=== PATIENT | female | born 1995 | race Caucasian/White ===

== ENCOUNTER 2024-12-03 08:34 | Outpatient (REF) | payer OTHER, SELFPAY ==
--- NOTE | 2024-12-03 08:40 | ECG_ITS ---
Test Reason : R/O QT PROLONGATION Blood Pressure : */* mmHG Vent. Rate : 67 BPM Atrial Rate : 67 BPM P-R Int : 162 ms QRS Dur : 82 ms QT Int : 402 ms P-R-T Axes : 76 35 47 degrees QTcB Int : 424 ms Normal sinus rhythm Normal ECG No previous ECGs available Referred By: Mague Encinas Electronically Signed By: ABDIRAHMAN COLEMAN
--- OUTSIDE RECORDS SUMMARY | 2024-12-03 08:44 | XMS_ITS | Clinical Summary ---
Author Organization [facility] Address [address] [place] [phone] Phone Care Team Providers Care [employer] Estate Services Coordinator Name Role Phone Leia Kumar MD Primary Care Provider [phone] Allergies No known active allergies Medications betamethasone dipropionate 0.05 % lotion Apply 5 to 10 drops twice a day to scalp if itchy Active DICLOFENAC SODIUM TOP Diclofenac Sodium 1 % Gel-APPLY 2 G TOPICALLY 4 TIMES DAILY. SHOULDER PAIN - Apply externally Active dicyclomine (BENTYL) 10 mg capsule Take 1 Capsule by mouth 3 times daily as needed (abd pain, diarrhea) for up to 180 days. - Oral Active omeprazole (PriLOSEC) [address] capsule TAKE 1 CAPSULE BY MOUTH EVERY DAY 90 capsule 3 07/20/20 24 Active Additional Information Patient not taking.Reported on 11/13/2024 cholecalciferol (Vitamin D3) 50 mcg (2,000 unit) tablet TAKE 1 TABLET BY MOUTH EVERY DAY 90 tablet 2 08/20/20 24 Active Additional Information Patient not taking.Reported on 11/13/2024 ondansetron (ZOFRAN) 4 mg tablet TAKE 1 TABLET BY MOUTH EVERY 8 HOURS NEEDED FOR NAUSEA 90 tablet 2 10/16/19 25 Active albuterol HFA (Ventolin HFA) 90 mcg/actuation inhaler Inhale 2 puffs by mouth every 4 (four) hours if needed for wheezing or shortness of breath. 8 g 10/16/19 25 Active FLUoxetine (PROzac) 20 mg tablet Take 1 tablet (20 mg total) by mouth 1 (one) time each day. 11/06/19 25 Active cyclobenzaprine (FLEXERIL) 5 mg tablet Take 1 tablet (5 mg total) by mouth 3 (three) times a day if needed for muscle spasms. 90 tablet 11/14/19 25 025 Active sertraline (ZOLOFT) 50 mg tablet TAKE 1 TABLET BY MOUTH EVERY DAY 90 tablet 1 10/02/19 25 025 Discontin ued(Alter miki therapy) Active Problems Problem Noted Date Diagnosed Date Eczema 06/16/2024 Gardnerella infection 06/16/2024 Recurrent UTI 06/16/2024 Anxiety 06/16/2024 Depression 06/16/2024 Vitamin D deficiency 06/16/2024 GERD (gastroesophageal reflux disease) Flank pain 06/16/2024 Irritable bowel syndrome wit h both constipation and diarrhea 06/16/2024 Encounters Date Type Department Care Team Description 11/13/2024 1:00 PM EDT Office Visit Adult Medicine [address] [phone] Leia Kumar MD Moderate episode of recurrent major depressive disorder (CMS/HCC) (Primary Dx); Anxiety; Strain of trapezius muscle, unspecified laterality, subsequent encounter; Urinary frequency 10/16/2024 1:45 PM EST Office Visit Walk-In [address] [phone] John Batres NP Symptoms of upper respiratory infection (URI) (Primary Dx); COVID; Influenza A 10/16/2024 Telephone Walk-In [address] [phone] John Batres NP 10/16/2024 Telephone Walk-In [address] [phone] John Batres NP 10/15/2024 Telephone Adult Medicine [address] [phone] Leia Kumar MD Forms/questionnaires ([facility]) 09/30/2024 2:10 PM EST - 09/30/2024 11:59 PM EST Hospital Encounter XRAY - [place] [id number] [place], [place] [phone] Neck tightness Discharge Disposition: Home or Self Care 09/30/2024 1:36 PM EST - 09/30/2024 11:59 PM EST Hospital Encounter Radiology Department - [address] [phone] Dizziness Discharge Disposition: Home or Self Care 09/18/2024 Nurse Triage Adult Medicine [facility] - [address] [phone] Leia Kumar MD from Last 3 Months Immunizations Name Administration Dates Next Due DTP 01/01/1996, 3,1993,1992 DTaP (Infanrix) 6wks to less than 7yo 06/28/1998 [id number] (Pentacel) 2mo to less than 5yo 01/01/1996,1993,1993,1992 HPV, Quadrivalent 04/22/2009,04/26/2008,10/21/19 08 Hepatitis B Pediatric (Enger ix B; Recombivax HB) to less than 20 yo 1993,1993,1993 MMR, measles mumps and rubel la Live (Priorix; M-M-R II) 12mo and older 06/28/1998,01/01/1996 OPV 06/28/1998, 6,1993,1992 Td Tetanus diptheria (Tdvax) 7yo and older 08/12/2004 Tdap Tetanus diptheria acell ular pertussis (Boostrix; Adacel) 7yo and older 11/19/2014 Surgical History Surgery Date Site/Laterality Comments OTHER SURGICAL HISTORY 2009 PROCEDURE: [place] I&D OF BARTHOLINS GLAND ABSCESS; COMMENT: Bartholin Cyst drainage and revision at age 17 yrs Medical History Medical History Date Comments History of chlamydia 06/09/2020 DX:History of chlamydia; COMMENT: 2012, 2010, & 2009 Gardnerella infection 06/09/2020 DX:Callahan severiano infection; COMMENT: 2009 Recurrent UTI 06/09/2020 DX:Recurrent UTI Anxiety 06/09/2020 DX:Anxiety Depression 06/09/2020 DX:Depression; C OMMENT: Current (06/2020) & h/o PP depression x 2 Eczema 12/06/2008 DX:Eczema Vitamin D deficiency 11/29/2020 DX:Vitamin D deficiency GERD (gastroesophageal reflux disease) Family History Medical History Relation Name Comments Alcohol abuse Paternal Grandfather Breast cancer Paternal Grandmother Bipola r Disorder, Depression/Anxiety Relation Name Status Comments Father Alive ileana kinney,moved in with dad x one month Maternal Grandfather Alive Maternal Grandmother Alive Mother Alive patricio byers, was with mom before now Paternal Grandfather Alive Paternal Grandmother Alive Sister 1 Alive jatinder kinney,,i/2 sister Sister 2 Alive daniela,,1/2 sister Social History Tobacco Use Types Packs/Day Years Used Date Smoking Tobacco: Never Passive Smoke Exposure: Never Smokeless Tobacco: Never Tobacco Cessation:Counseling Given: Not Answered Alcohol Use Standard Drinks/Week Comments No 0 (1 standard drink = 0.6 oz pur e alcohol) Housing Instability Answer Date Recorde d Are you worried that in the next 2 months you may not have stable housing? No 09/01/2024 Food Access & Nutrition Answer Date Rec orded Do you have access to a vari ety of food including fruits and vegetables? Yes 09/01/2024 Access to Healthcare Answer Date Record ed Within the last 3 months, ho w many times did you visit the emergency department for your medical care? 0 09/01/2024 Health Literacy Answer Date Recorded How often do you need to hav e someone help you when you read instructions, pamphlets, or other written material from your doctor or pharmacy? Never 09/01/2024 Caregiver: How often do you need to have someone help you when you read instructions, pamphlets, or other written material from your doctor or pharmacy? Not on file 09/01/2024 Financial Risk Answer Date Recorded How hard is it for you to pa y for the very basics like food, housing, medical care, and air conditioning / heating? Somewhat hard 09/01/2024 Transportation Answer Date Recorded Has the lack of transportati on kept you from meetings, work, or from getting things needed for daily living? No Has the lack of transportati on kept you from medical appointments or from getting medications? No 09/01/2024 Social Isolation Answer Date Recorded How often do you feel lonely or isolated from those around you? Sometimes 09/01/2024 Food Risk Answer Date Recorded Within the past 12 months we worried whether our food would run out before we got money to buy more. Never true 09/01/2024 Within the past 12 months th e food we bought just didn't last and we didn't have money to get more. Never true 09/01/2024 Dependent Care Answer Date Recorded Do you need help finding or paying for care for your loved ones. For example, child study team director or elderly care for an older adult? No 09/01/2024 Education Answer Date Recorded Do you think completing more education or training, like finishing a GED, going to college, or learning a trade, would be helpful for you? Yes 09/01/2024 Employment and Income Answer Date Recor ded During the last four weeks, have you been actively looking for work? No 09/01/2024 Living Situation Answer Date Recorded What is your living situation? 1 Interpersonal Safety Answer Date Record ed Physical Abuse 07/14/2024 Verbal Abuse 07/14/2024 Comments No Sex and Gender Information Value Date Recorded Sex Assigned at Female 07/13/2024 3:46 PM EST Legal Sex Female 7:09 AM EST Gender Identity Female 07/13/2024 3:46 PM EST Sexual Orientation Bisexual 07/09/2024 7: 14 AM EST Obstetrics History Last Filed Vital Signs Vital Sign Reading Time Taken Comments Blood Pressure 126/84 11/13/2024 1:05 PM EDT Pulse 90 11/13/2024 1:05 PM EDT Temperature 36.3 ??C (97.4 ??F) 11/13/2024 1:05 PM ED T Respiratory Rate 16 11/13/2024 1:05 PM EDT Oxygen Saturation 98% 10/16/2024 1:43 PM EST Inhaled Oxygen Concentration - - Weight 71.2 kg (157 lb) 11/13/2024 1:05 PM EDT Height 167.6 cm (5' 6 ) 11/13/2024 1:05 PM EDT Body Mass Index 25.34 11/13/2024 1:05 PM EDT Plan of Treatment Upcoming Encounters Date Type Department Care Team (Late st Contact Info) Description 12/11/2024 9:00 AM EDT Office Visit Adult [address] [phone] Leia Kumar MD [address] [place] [phone] 04/21/2025 4:00 PM EDT Office Visit [address] [phone] Leia Kumar MD [address] [place] [phone] Health Maintenance Due Date Last Done Comments Hepatitis B Vaccines (3 of 3 - 3-dose series) 1993 1993, 1993, 1993 Colorectal Cancer Screening: Colonoscopy 08/10/2022 HIV Screening 08/10/2022 Hepatitis C Screening 08/10/2022 COVID-19 Vaccine ( season) 2024 05/05/2021, 04/07/2021 DTaP,Tdap,and Td Vaccines (8 - Td or Tdap) 11/19/2024 11/19/2014, 08/12/2004, 06/28/1998, Additional history exists Influenza Vaccine (Season Ended) 2025 Depression Screening 09/01/2025 09/01/2024 Social Influencers of Health Screening 09/01/2025 09/01/2024 Cervical Cancer Screening: HPV 11/24/2028 11/25/2023 Cholesterol Screening (Lipid Panel) 02/25/2029 02/26/2024, 02/26/2024 HIB Vaccines Completed 01/01/1996, 09/1995, 1993, Additional history exists IPV Vaccines Completed 06/28/1998, 09/1995, 01/01/1996, Additional history exists MMR Vaccines Completed 06/28/1998, 01/01/1996 HPV Vaccines Completed 04/22/2009, 04/03, 10/21/2007 Hepatitis A Vaccines Aged Out No long er eligible based on patient's age to complete this topic Meningococcal ACWY Vaccine Aged Out N o longer eligible based on patient's age to complete this topic Meningococcal B Vacine Aged Out No lo nger eligible based on patient's age to complete this topic Pneumococcal Vaccine: Pediatrics (0 to 5 Years) and At-Risk Patients (6 to 64 Years) Aged Out No longer eligible based on patient's age to complete this topic RSV Immunization Patients Under 20 months Aged Out No longer eligible based on patient's age to complete this topic Varicella Vaccines Aged Out No longer eligible based on patient's age to complete this topic Procedures Procedure Name Priority Date/Time Associated Diagnosis Comments CREATINE KINASE Routine 11/23/2024 8:19 AM EDT Migraine without aura SEDIMENTATION RATE Routine 11/23/2024 8: 19 AM EDT Migraine without aura ANTI-DNA ANTIBODY, DOUBLE-STRANDED Routine 11/23/2024 8:19 AM EDT Migraine without aura BORRELIA BURGDORFERI ANTIBODY Routine 11/23/2024 8:19 AM EDT Migraine without aura RHEUMATOID FACTOR Routine 11/23/2024 8:1 9 AM EDT Migraine without aura LEWIS URINE CULTURE TUBE Routine 11/13/2024 2:26 PM EDT Urinary frequency URINALYSIS WITH REFLEX MICROSCOPIC AND CULTURE Routine 11/13/2024 2:26 PM EDT Urinary frequency URINALYSIS WITH REFLEX MICROSCOPIC AND CULTURE Routine 11/13/2024 2:26 PM EDT Urinary frequency POC RAPID STREP A Routine 10/16/2024 2:1 4 PM EST Symptoms of upper respiratory infection (URI) POC RAPID [id number], MOLECULAR Routine 10/16/2024 2:14 PM EST Symptoms of upper respiratory infection (URI) POC INFLUENZA A/B Routine 10/16/2024 2:1 3 PM EST Symptoms of upper respiratory infection (URI) MR BRAIN WO CONTRAST Routine 09/30/2024 3:28 PM EST Dizziness XR CERVICAL SPINE 4-5 VIEWS Routine 09/30/2024 2:22 PM EST Neck tightness CBC WITH AUTO DIFFERENTIAL Routine 09/14/2024 8:18 AM EST Numbness and tingling MAGNESIUM Routine 09/14/2024 8:18 AM EST Numbness and tingling VITAMIN D 25 HYDROXY Routine 09/14/2024 8:18 AM EST Vitamin D deficiency THYROID STIMULATING HORMONE WITH REFLEX TO FREE T4 AND FREE T3 Routine 09/14/2024 8:18 AM EST Numbness and tingling CBC AND DIFFERENTIAL Routine 09/14/2024 8:18 AM EST Numbness and tingling COMPREHENSIVE METABOLIC PANEL Routine 09/14/2024 8:18 AM EST Numbness and tingling FERRITIN Routine 09/14/2024 8:18 AM EST Numbness and tingling IRON AND TIBC Routine 09/14/2024 8:18 AM EST Numbness and tingling VITAMIN B12 AND FOLATE Routine 8:18 AM EST Numbness and tingling LIPID PANEL Routine 02/26/2024 HM HPV Routine 11/25/2023 from Last 3 Months or Most Recently Relevant to Health Maintenance Results * Borrelia burgdorferi antibody (11/23/2024 8:19 AM EDT) Lyme Ab Negative Negative LAB CHEMISTRY METHOD 11/23/2024 12:08 PM EDT [facility] Comment: No laboratory evidence of infection with B. burgdorferi (Lyme disease). Negative results may occur in patients recently infected (<=14 days) with B. burgdorferi. ??If recent infection is suspected, repeat testing on a new sample collected in 7-14 days is recommended. Blood Venous blood specimen / Unknown Venipuncture / Unknown 11/23/2024 8:19 AM EDT 11/23/2024 8:19 AM EDT us Michael Velarde MD LAB BLOOD ORDERABLES Final Result Performing Organization Address City/[facility]/ZIP Co de Phone Number [facility] [address] [place] [address], [place] [phone] * DNA antibody, double-stranded (11/23/2024 8:19 AM EDT) [facility] Anti-DNA Double Stranded Antibody Negative Negative LAB CHEMISTRY METHOD 11/29/2024 12:33 PM EDT [facility] ds DNA Ab 29 <=200 I Unit/mL LAB CHEMISTRY METHOD 11/29/2024 12:33 PM EDT [facility] Blood Venous blood specimen / Unknown Venipuncture / Unknown 11/23/2024 8:19 AM EDT 11/23/2024 8:19 AM EDT Michael Velarde MD LAB BLOOD ORDERABLES Final Result [facility] [address] [place] [address], [place] [phone] * Sedimentation rate (11/23/2024 8:19 AM EDT) Pathologist [facility] Sed Rate 5 0 - 20 mm/hr LAB HEMETOLOGY METHOD 11/23/2024 10:38 AM EDT [facility] Blood Venous blood specimen / Unknown Venipuncture / Unknown 11/23/2024 8:19 AM EDT 11/23/2024 8:19 AM EDT us Michael Velarde MD LAB BLOOD ORDERABLES Final Result Performing Organization Address [facility]/ZIP Co de Phone Number [facility] [address] [place] [address], [place] [phone] * Rheumatoid factor (11/23/2024 8:19 AM EDT) [facility] Rheumatoid Factor <10.0 <15.0 I Unit/mL LAB CHEMISTRY METHOD 11/23/2024 1:26 PM EDT [facility] Blood Venous blood specimen / Unknown Venipuncture / Unknown 11/23/2024 8:19 AM EDT 11/23/2024 8:19 AM EDT us Michael Velarde MD LAB BLOOD ORDERABLES Final Result Performing Organization Address [facility] Co de Phone Number [facility] [address] [place] [address], [place] [phone] * Creatine kinase (11/23/2024 8:19 AM EDT) [facility] Total CK 46 22 - 269 unit/L LAB CHEMISTRY METHOD 11/23/2024 1:26 PM EDT [facility] Blood Venous blood specimen / Unknown Venipuncture / Unknown 11/23/2024 8:19 AM EDT 11/23/2024 8:19 AM EDT us Michael Velarde MD LAB BLOOD ORDERABLES Final Result Performing Organization Address City/[facility]/ZIP Co de Phone Number [facility] [address] [place] [address], [place] [phone] * (ABNORMAL) Urinalysis with reflex microscopic and culture (11/13/2024 2:26 PM EDT) Pathologist [facility] Specific [place] Urine 1.027 1.003 - 1.030 LAB URINALYSIS - AUTOMATED METHOD 11/13/2024 6:18 PM EDT [facility] pH, Urine 6.0 5.0 - 8.0 pH LAB URINALYSIS - AUTOMATED METHOD 11/13/2024 6:18 PM T [facility] Leukocytes, Urine Negative Negative LAB URINALYSIS - AUTOMATED METHOD 11/13/2024 6:18 PM T [facility] Nitrite, Urine Negative Negative LAB URINALYSIS - AUTOMATED METHOD 11/13/2024 6:18 PM EDT [facility] Protein, Urine Negative <=Trace mg/dL LAB URINALYSIS - AUTOMATED METHOD 11/13/2024 6:18 PM [facility] Glucose, Urine Negative Negative mg/dL LAB URINALYSIS - AUTOMATED METHOD 11/13/2024 6:18 PM [facility] Ketones, Urine Trace(A) Negative mg/dL LAB URINALYSIS - AUTOMATED METHOD 11/13/2024 6:18 PM T [facility] Urobilinogen, Urine 1.0 0.2 - 1.0 mg/dL LAB URINALYSIS - AUTOMATED METHOD 11/13/2024 6:18 PM [facility] Bilirubin, Urine Negative Negative LAB URINALYSIS - AUTOMATED METHOD 11/13/2024 6:18 PM T [facility] Blood, Urine Negative Negative LAB URINALYSIS - AUTOMATED METHOD 11/13/2024 6:18 PM [facility] Urine Urine specimen obtained by clean catch procedure / Unknown Non-blood Collection / Unknown 11/13/2024 2:26 PM EDT 11/13/2024 2:26 PM EDT us Leia Kumar MD LAB URINE ORDERABLES Final Resul t [facility] [address] [place] [address], [place] [phone] * Lewis urine culture tube (11/13/2024 2:26 PM EDT) [facility] Extra Tube Hold for add-ons. 11/13/2024 5:01 PM EDT [facility] Comment:Auto resulted. Urine Urine specimen obtained by clean catch procedure / Unknown Non-blood Collection / Unknown 11/13/2024 2:26 PM EDT 11/13/2024 2:26 PM EDT us Leia Kumar MD LAB URINE ORDERABLES Final Resul t [facility] [address] [place] [address], [place] [phone] * (ABNORMAL) Poc Rapid [id number], MOLECULAR (10/16/2024 2:14 PM EST) [facility] COVID-19/SARS- COV-2 Rapid POC Positive(A ) Negative Swab Nasopharyngeal structure / Unknown 10/16/2024 2:14 PM EST us John Batres NP POINT OF CARE TEST ENTER/EDIT ORDERABLES Final Result * POC rapid strep A manually resulted (10/16/2024 2:14 PM EST) [facility] Rapid Strep A Screen POC Negative Negative Swab Structure of anterior portion of neck / Unknown 10/16/2024 2:14 PM EST us John Batres NP POINT OF CARE TEST ENTER/EDIT ORDERABLES Final Result * (ABNORMAL) POC Influenza A/B manually resulted (10/16/2024 2:13 PM EST) [facility] Rapid Influenza A AGN POC Positive(A) Negative Rapid Influenza B AGN POC Negative Negative Swab 10/16/2024 2:13 PM EST us John Batres NP POINT OF CARE TEST ENTER/EDIT ORDERABLES Final Result * MR Brain wo Contrast (09/30/2024 3:28 PM EST) Anatomical Region Laterality Modality Head and Neck Magnetic Resonan ce 09/30/2024 6:58 PM EST Impressions 09/30/2024 7:30 PM EST Unremarkable brain parenchyma. -------- FINAL REPORT -------- Dictated By: Chase Duke Dictated Date: 09/30/2024 18:58 ET Assigned Physician: Chase Duke Reviewed and Electronically Signed By: Chase Duke Signed Date: 09/30/2024 19:30 ET Workstation ID: [id number] Transcribed By: Self Edit Transcribed Date: 09/30/2024 19:00 ET Narrative 09/30/2024 7:30 PM EST MR BRAIN WO CONTRAST TECHNIQUE: Multisequence MRI of the brain was performed without administration of intravenous contrast. COMPARISON: Brain MRI on October 01, 2020 HISTORY: Dizziness, nonspecific. FINDINGS: Motion degrades many sequences. Brain Parenchyma: No shift of midline structures. ??No evidence of acute infarct, parenchymal hemorrhage or mass lesion. Ventricular System and Extra-Axial Spaces: No hydrocephalus. ??No extra-axial fluid collection. Extracranial Structures: Arterial flow voids in the skull base are present. Mild mucosal thickening of the paranasal sinuses. ??Mastoid air cells are clear. Procedure Note Chase Duke MD - 09/30/2024 MR BRAIN WO CONTRAST TECHNIQUE: Multisequence MRI of the brain was performed withoutadministration of intravenous contrast. COMPARISON: Brain MRI on October 01, 2020 HISTORY: Dizziness, nonspecific. FINDINGS: Motion degrades many sequences. Brain Parenchyma: No shift of midline structures. No evidence of acuteinfarct, parenchymal hemorrhage or mass lesion. Ventricular System and Extra-Axial Spaces: No hydrocephalus. Noextra-axial fluid collection. Extracranial Structures: Arterial flow voids in the skull base arepresent. Mild mucosal thickening of the paranasal sinuses. Mastoid aircells are clear. IMPRESSION: Unremarkable brain parenchyma. -------- FINAL REPORT -------- Dictated By: Chase Duke Dictated Date: 09/30/2024 18:58 ET Assigned Physician: Chase Duke Reviewed and Electronically Signed By: Chase Duke Signed Date: 09/30/2024 19:30 ET Workstation ID: [id number] Transcribed By: Self Edit Transcribed Date: 09/30/2024 19:00 ET us Leia Kumar MD IMG MRI PROCEDURES Final Result * XR Cervical Spine 4-5 Views (09/30/2024 2:22 PM EST) Anatomical Region Laterality Modality Spine, C-spine Radiographic Pao ging 09/30/2024 7:55 PM EST Impressions 09/30/2024 7:57 PM EST 1. No acute fracture or dislocation of the cervical spine. 2. Reversal of the normal cervical lordosis with the apex at C4-C5. ??This is likely due to positioning although if there is any history of trauma/concern for ligamentous injury, consider MRI cervical spine -------- FINAL REPORT -------- Dictated By: Xavi Nolan Dictated Date: 09/30/2024 19:55 ET Assigned Physician: Xavi Nolan Reviewed and Electronically Signed By: Xavi Nolan Signed Date: 09/30/2024 19:57 ET Workstation ID: [id number] Transcribed By: Self Edit Transcribed Date: 09/30/2024 19:55 ET Narrative 09/30/2024 7:57 PM EST HISTORY: Neck pain TECHNIQUE: ??4 views of the cervical spine COMPARISON: None FINDINGS: The cervical spine is visualized from C1-C7. ??Vertebral body height and disc height is grossly preserved. ??There is reversal of the normal cervical lordosis with the apex at C4-C5. ??No prevertebral soft tissue swelling is identified. ??The posterior elements are grossly intact. ??No neuroforaminal stenosis is present. ??The lung apices are clear. Procedure Note Xavi Nolan MD - 09/30/2024 HISTORY: Neck pain TECHNIQUE: 4 views of the cervical spine COMPARISON: None FINDINGS: The cervical spine is visualized from C1-C7. Vertebral body height anddisc height is grossly preserved. There is reversal of the normalcervical lordosis with the apex at C4-C5. No prevertebral soft tissueswelling is identified. The posterior elements are grossly intact. Noneuroforaminal stenosis is present. The lung apices are clear. IMPRESSION: 1. No acute fracture or dislocation of the cervical spine. 2. Reversal of the normal cervical lordosis with the apex at C4-C5. Thisis likely due to positioning although if there is any history oftrauma/concern for ligamentous injury, consider MRI cervical spine -------- FINAL REPORT -------- Dictated By: Xavi Nolan Dictated Date: 09/30/2024 19:55 ET Assigned Physician: Xavi Nolan Reviewed and Electronically Signed By: Xavi Nolan Signed Date: 09/30/2024 19:57 ET Workstation ID: [id number] Transcribed By: Self Edit Transcribed Date: 09/30/2024 19:55 ET Leia Kumar MD IMG XR PROCEDURES Final Result * Thyroid stimulating hormone with reflex to free t4 and free t3 (09/14/2024 8:18 AM EST) TSH 1.32 0.40 - 4.00 mcIU/mL LAB CHEMISTRY METHOD 09/14/2024 10:25 AM EST [facility] Blood Venous blood specimen / Unknown Venipuncture / Unknown 09/14/2024 8:18 AM EST 09/14/2024 8:18 AM EST Leia Kumar MD LAB BLOOD ORDERABLES Final Resul t [facility] [address] [place] [address], [place] [phone] * Vitamin B12 and folate (09/14/2024 8:18 AM EST) [facility] Vitamin B-12 308 250 - 900 pcg/mL LAB CHEMISTRY METHOD 09/14/2024 10:48 AM [facility] Folate 3.1 2.8 - 17.0 ng/ml LAB CHEMISTRY METHOD 09/14/2024 10:48 AM [facility] Blood Venous blood specimen / Unknown Venipuncture / Unknown 09/14/2024 8:18 AM EST 09/14/2024 8:18 AM EST us Leia Kumar MD LAB BLOOD ORDERABLES Final Resul t [facility] [address] [place] [address], [place] [phone] * (ABNORMAL) CBC auto differential (09/14/2024 8:18 AM EST) [facility] WBC 9.2 4.8 - 10.8 K/mcL LAB HEMETOLOGY METHOD 09/14/2024 10:03 AM [facility] RBC 4.40 3.80 - 4.80 M/mcL LAB HEMETOLOGY METHOD 09/14/2024 10:03 AM [facility] Hemoglobin 13.6 11.5 - 16.0 g/dL LAB HEMETOLOGY METHOD 09/14/2024 10:03 AM [facility] Hematocrit 41.1 35.0 - 47.0 % LAB HEMETOLOGY METHOD 09/14/2024 10:03 AM [facility] MCV 93.0 79.0 - 98.0 FL LAB HEMETOLOGY METHOD 09/14/2024 10:03 AM [facility] MCH 30.8 27.0 - 32.0 pcg LAB HEMETOLOGY METHOD 09/14/2024 10:03 AM [facility] [facility] MCHC 33.1 32.0 - 37.0 g/dL LAB HEMETOLOGY METHOD 09/14/2024 10:03 AM [facility] RDW 13.7 11.0 - 15.0 % LAB HEMETOLOGY METHOD 09/14/2024 10:03 AM [facility] Platelets 301 130 - 400 K/mcL LAB HEMETOLOGY METHOD 09/14/2024 10:03 AM [facility] MPV 10.9 7.0 - 11.0 FL LAB HEMETOLOGY METHOD 09/14/2024 10:03 AM [facility] NRBC 0.0 <1.0 % LAB HEMETOLOGY METHOD 09/14/2024 10:03 AM [facility] NRBC Absolute 0.00 <0.10 K/mcL LAB HEMETOLOGY METHOD 09/14/2024 10:03 AM [facility] Neutrophils Relative 70.8 % LAB HEMETOLOGY METHOD 09/14/2024 10:03 AM [facility] Lymphocytes Relative 22.8 % LAB HEMETOLOGY METHOD 09/14/2024 10:03 AM [facility] Monocytes Relative 4.3 % LAB HEMETOLOGY METHOD 09/14/2024 10:03 AM [facility] Eosinophils Relative 1.4 % LAB HEMETOLOGY METHOD 09/14/2024 10:03 AM [facility] Basophils Relative 0.3 % LAB HEMETOLOGY METHOD 09/14/2024 10:03 AM [facility] Immature Granulocytes Relative 0.4 % LAB HEMETOLOGY METHOD 09/14/2024 10:03 AM [facility] Neutrophils Absolute 6.50 1.50 - 7.00 K/mcL LAB HEMETOLOGY METHOD 09/14/2024 10:03 AM [facility] Lymphocytes Absolute 2.10 1.00 - 5.00 K/mcL LAB HEMETOLOGY METHOD 09/14/2024 10:03 AM EST [facility] Monocytes Absolute 0.40 0.20 - 1.00 K/mcL LAB HEMETOLOGY METHOD 09/14/2024 10:03 AM EST [facility] Eosinophils Absolute 0.13 0.00 - 0.50 K/mcL LAB HEMETOLOGY METHOD 09/14/2024 10:03 AM EST [facility] Basophils Absolute 0.03 0.00 - 0.20 K/mcL LAB HEMETOLOGY METHOD 09/14/2024 10:03 AM EST [facility] Immature Granulocytes Absolute 0.04(H) 0.00 - 0.03 K/mcL LAB HEMETOLOGY METHOD 09/14/2024 10:03 AM EST [facility] Blood Venous blood specimen / Unknown Venipuncture / Unknown 09/14/2024 8:18 AM EST 09/14/2024 8:18 AM EST Leia Kumar MD LAB BLOOD ORDERABLES Final Resul t [facility] [address] [place] [address], [place] [phone] * Iron and TIBC (09/14/2024 8:18 AM EST) Iron 62 40 - 150 mcg/dL LAB CHEMISTRY METHOD 09/14/2024 10:48 AM EST [facility] TIBC 283 250 - 450 mcg/dL LAB CHEMISTRY METHOD 09/14/2024 10:48 AM EST [facility] Iron Saturation 22 15 - 50 % LAB CHEMISTRY METHOD 09/14/2024 10:48 AM EST [facility] Blood Venous blood specimen / Unknown Venipuncture / Unknown 09/14/2024 8:18 AM EST 09/14/2024 8:18 AM EST Leia Kumar MD LAB BLOOD ORDERABLES Final Resul t Performing Organization Address City/[facility] Co de Phone Number [facility] [address] [place] [address], [place] [phone] * (ABNORMAL) Vitamin D 25 hydroxy (09/14/2024 8:18 AM EST) Vit D, 25-Hydroxy 22.5(L) 30.0 - 80.0 ng/mL LAB CHEMISTRY METHOD 09/14/2024 10:25 AM EST [facility] Blood Venous blood specimen / Unknown Venipuncture / Unknown 09/14/2024 8:18 AM EST 09/14/2024 8:18 AM EST us Leia Kumar MD LAB BLOOD ORDERABLES Final Resul t Performing Organization Address [facility] de Phone Number [facility] [address] [place] [address], [place] [phone] * Magnesium (09/14/2024 8:18 AM EST) Pathologist [facility] Magnesium 2.1 1.9 - 2.6 mg/dL LAB CHEMISTRY METHOD 09/14/2024 10:17 AM EST [facility] Blood Venous blood specimen / Unknown Venipuncture / Unknown 09/14/2024 8:18 AM EST 09/14/2024 8:18 AM EST us Leia Kumar MD LAB BLOOD ORDERABLES Final Resul t Performing Organization Address City/[facility] Co de Phone Number [facility] [address] [place] [address], [place] [phone] * Ferritin (09/14/2024 8:18 AM EST) Ferritin 26 8 - 252 ng/mL LAB CHEMISTRY METHOD 09/14/2024 10:48 AM EST [facility] Blood Venous blood specimen / Unknown Venipuncture / Unknown 09/14/2024 8:18 AM EST 09/14/2024 8:18 AM EST us Leia Kumar MD LAB BLOOD ORDERABLES Final Resul t [facility] [address] [place] [address], [place] [phone] * Comprehensive metabolic panel (09/14/2024 8:18 AM EST) Sodium 141 133 - 145 mmol/L LAB CHEMISTRY METHOD 09/14/2024 10:48 AM [facility] Potassium 4.3 3.5 - 5.5 mmol/L LAB CHEMISTRY METHOD 09/14/2024 10:48 AM [facility] Chloride 107 96 - 110 mmol/L LAB CHEMISTRY METHOD 09/14/2024 10:48 AM [facility] CO2 25 21 - 32 mmol/L LAB CHEMISTRY METHOD 09/14/2024 10:48 AM [facility] Anion Gap 9 3 - 11 LAB CHEMISTRY METHOD 09/14/2024 10:48 AM [facility] Glucose 97 70 - 100 mg/dL LAB CHEMISTRY METHOD 09/14/2024 10:48 AM [facility] BUN 15 5 - 25 mg/dL LAB CHEMISTRY METHOD 09/14/2024 10:48 AM [facility] Creatinine 0.86 0.50 - 1.10 mg/dL LAB CHEMISTRY METHOD 09/14/2024 10:48 AM [facility] eGFR 93 >=60 mL/min/1. 73m2 LAB CHEMISTRY METHOD 09/14/2024 10:48 AM [facility] Comment:Calculation based on the??Chronic Kidney Disease Epidemiology Collaboration (CKD-EPI) equation refit??without adjustment for race. BUN/Creatinine Ratio 17.4 LAB CHEMISTRY METHOD 09/14/2024 10:48 AM [facility] Calcium 8.6 8.5 - 10.5 mg/dL LAB CHEMISTRY METHOD 09/14/2024 10:48 AM [facility] AST (SGOT) 16 10 - 42 unit/L LAB CHEMISTRY METHOD 09/14/2024 10:48 AM [facility] ALT (SGPT) 25 10 - 60 unit/L LAB CHEMISTRY METHOD 09/14/2024 10:48 AM [facility] Alkaline Phosphatase 73 42 - 121 unit/L LAB CHEMISTRY METHOD 09/14/2024 10:48 AM [facility] Total Protein 7.4 6.0 - 8.0 g/dL LAB CHEMISTRY METHOD 09/14/2024 10:48 AM [facility] Albumin 3.9 3.2 - 5.0 g/dL LAB CHEMISTRY METHOD 09/14/2024 10:48 AM [facility] Total Bilirubin 0.5 0.0 - 1.4 mg/dL LAB CHEMISTRY METHOD 09/14/2024 10:48 AM [facility] Blood Venous blood specimen / Unknown Venipuncture / Unknown 09/14/2024 8:18 AM EST 09/14/2024 8:18 AM EST Leia Kumar MD LAB BLOOD ORDERABLES Final Resul t [facility] [address] [place] [address], * (ABNORMAL) Lipid panel (02/26/2024) LDL/HDL Ratio 4 0 - 4 Triglycerides 77 0 - 150 mg/dL Cholesterol 165 0 - 200 mg/dL HDL 47 >=40 mg/dL LDL Cholesterol 103(A) 0 - 100 mg/dL Blood Venous blood specimen / Unknown us Tiera Lovelace MD LAB BLOOD ORDERABLES Gabrielle l Result * Hm Cervical Cancer Screening: HPV (11/25/2023) Cervical Cancer Screening: HPV no interpretation abstracted us Historical Provider HEALTH MAINTENANCE Final Result from Last 3 Months or Most Recently Relevant to Health Maintenance Insurance [facility] [employer] PLAN Care Teams Real Estate Services Coordinator Relationship Specialty Start Date End Date Leia Kumar MD [address] [place] [address] [id number] PCP - General Internal Medicine 07/12/24
--- OUTSIDE RECORDS SUMMARY | 2024-12-03 08:45 | XMS_ITS | Encounter Summary ---
Author Organization [facility] Address [address] [place] [address] Care Team Providers Care Reimbursement Coordinator Name Role Phone Faye Reese MD Primary Care Provider Chio Bella MD Primary Care Provider [phone] Leia Kumar MD Primary Care Provider [phone] Reason for Referral * Non MONICA (Routine) - Authorized/Booked Specialty Diagnoses / Procedures Referred By Demetrice borjas Referred To Contact Dermatology Procedures REFERRAL TO DERMATOLOGY Faye Reese MD [address] [place] [address] Derm/[place] [address] [place] [address] Referral ID Status Reason Start Date Expiration Date V isits Requested Visits Authorized [id number] Authorized/ Booked 10/03/2020 10/03/2021 1 1 Encounter Details Date Type Department Care Team Description 10/03/2020 Orders Only Medicine/Pediatrics - [address] [address] Faye Reese MD Social History Tobacco Use Types Packs/Day Years Used Date Smoking Tobacco: Passive Smo ke Exposure - Never Smoker Smokeless Tobacco: Never Comments:outside Alcohol Use Standard Drinks/Week Comments No 0 (1 standard drink = 0.6 oz pur e alcohol) Sex Assigned at Date Recorded Not on file Job Start Date Occupation Industry Not on file Not on file Not on file documented as of this encounter Plan of Treatment Not on file documented as of this encounter Visit Diagnoses Not on filedocumented in this encounter Care Teams Reimbursement Coordinator Relationship Specialty Start Date End Date Faye Reese MD PCP - General Internal Medicine 04/20/20 11/28/20 Chio Keating MD [address] [place] [address] PCP - General Internal Medicine 11/29/20 08/27/22 Leia Kumar MD [address] [place] [address] PCP - General Internal Medicine 08/28/22 documented as of this encounter
--- OUTSIDE RECORDS SUMMARY | 2024-12-03 08:45 | XMS_ITS | Encounter Summary ---
Author Organization [facility] Address [address] [place] [address] Care Team Providers Care It Applications Developer Name Role Phone Faye Reese MD Primary Care Provider Chio Bella MD Primary Care Provider [phone] Leia Kumar MD Primary Care Provider [phone] Encounter Details Date Type Department Care Team Description 05/06/2020 Release of Information Medical Records [address] [place] [id number] Abstract, Provider Social History Tobacco Use Types Packs/Day Years Used Date Smoking Tobacco: Passive Smo ke Exposure - Never Smoker Smokeless Tobacco: Never Comments:outside Alcohol Use Standard Drinks/Week Comments No 0 (1 standard drink = 0.6 oz pur e alcohol) Sex Assigned at Date Recorded Not on file Job Start Date Occupation Industry Not on file Not on file Not on file COVID-19 Exposure Response Date Recorded In the last month, have you been in contact with someone who was confirmed or suspected to have Coronavirus / COVID-19? No / Unsure 05/05/2020 9:48 AM EDT documented as of this encounter Nursing Notes * Kristin Gasca - 05/06/2020 4:09 PM EDT AUTHORIZATION TO OBTAIN RECORDS FAXED TO [facility]. documented in this encounter Plan of Treatment Not on file documented as of this encounter Visit Diagnoses Not on filedocumented in this encounter Care Teams It Applications Developer Relationship Specialty Start Date End Date Faye Reese MD PCP - General Internal Medicine 04/20/20 11/28/20 Chio Keating MD [address] [place] [address] PCP - General Internal Medicine 11/29/20 08/27/22 Leia Kumar MD [address] [place] [id number] PCP - General Internal Medicine 08/28/22 documented as of this encounter
--- OUTSIDE RECORDS SUMMARY | 2024-12-03 08:45 | XMS_ITS | Encounter Summary ---
Author Organization [facility] Address [address] [place] [address] Care Team Providers Care Automatic Bandsaw Tender Name Role Phone Faye Reese MD Primary Care Provider Chio Bella MD Primary Care Provider [phone] Leia Kumar MD Primary Care Provider [phone] Encounter Details Date Type Department Care Team Description 05/10/2020 Release of Information Medical Records [address] [place] [address] Abstract, Provider Social History Tobacco Use Types [...] AM EDT documented as of this encounter Plan of Treatment Not on file documented as of this encounter Visit Diagnoses Not on filedocumented in this encounter Care Teams Automatic Bandsaw Tender Relationship Specialty Start Date End Date Faye Reese MD PCP - General Internal Medicine 04/20/20 11/28/20 Chio Keating MD [address] [place] [address] PCP - General Internal Medicine 11/29/20 08/27/22 Leia Kumar MD [address] [place] [address] PCP - General Internal Medicine 08/28/22 documented as of this encounter
--- OUTSIDE RECORDS SUMMARY | 2024-12-03 08:45 | XMS_ITS | Encounter Summary ---
Author Organization [facility] Address [address] [place] [address] Care Team Providers Care Scrap Bunch Maker Name Role Phone Leia Kumar MD Primary Care Provider Encounter Details Date Type Department Care Team Description 06/29/2024 Pt. Non Urgent Medical Question Adult Medicine [address] [address] Leia Kumar MD [address] [place] [id number] Social History Tobacco Use Types Packs/Day Years Used Date Smoking Tobacco: Never Passive Smoke Exposure: Yes Smokeless Tobacco: Never Comments:outside Alcohol Use Standard Drinks/Week Comments No 0 (1 standard drink = 0.6 oz pur e alcohol) rare Sex Assigned at Date Recorded Not on file Job Start Date Occupation Industry Not on file Not on file Not on file documented as of this encounter Miscellaneous Notes * Telephone Encounter - Phoebe Urias L.P.N. - 06/29/2024 10:58 AM EDTFrom: Etelvina Joseph To: Mirna Kumar Sent: 06/29/2024 10:43 AM EDT Subject: Medication Sertraline Luci, I scheduled a follow up for 09/01 but wanted to see if I can have a dose increase on my sertraline in hopes that it???ll better help me. I???m available sooner to discuss documented in this encounter Plan of Treatment Not on file documented as of this encounter Visit Diagnoses Not on filedocumented in this encounter Care Teams Scrap Bunch Maker Relationship Specialty Start Date End Date Leia Kumar MD [address] [place] [id number] PCP - General Internal Medicine 08/28/22 documented as of this encounter
--- OUTSIDE RECORDS SUMMARY | 2024-12-03 08:45 | XMS_ITS | Encounter Summary ---
Author Organization [facility] Address [address] [place] [address] Care Team Providers Care Splicing Supervisor Name Role Phone Leia Kumar MD Primary Care Provider Encounter Details Date Type Department Care Team Description 06/02/2024 Refill Gastroenterology - [address] [place] [phone] Vero Guardado DScPAS Social History Tobacco Use Types Packs/Day Years [...] encounter Miscellaneous Notes * Telephone Encounter - Gisselle Mead C.M.A. - 06/02/2024 12:02 PM EDT Carole - 01/15/2024 Nov - 06/11/2024 documented in this encounter Plan of Treatment Not on file documented as of this encounter Visit Diagnoses Not on filedocumented in this encounter Care Teams Splicing Supervisor Relationship Specialty Start Date End Date Leia Kumar MD [address] [place] [address] PCP - General Internal Medicine 08/28/22 documented as of this encounter
--- OUTSIDE RECORDS SUMMARY | 2024-12-03 08:45 | XMS_ITS | Encounter Summary ---
Author Organization [facility] Address [address] [place] [address] Care Team Providers Care Rooms Director Name Role Phone Leia Kumar MD Primary Care Provider [phone] Encounter Details Date Type Department Care Team Description 11/08/2023 Orders Only Medical Records [address] [place], [place] [address] [place] [address] Social History Tobacco Use Types Packs/Day Years [...] on file documented as of this encounter Procedures Procedure Name Priority Date/Time Associated Diagnosis Comments OUTSIDE LAB Routine 10/07/2023 documented in this encounter Results * OUTSIDE LAB (10/07/2023) [facility] documented in this encounter Visit Diagnoses Not on filedocumented in this encounter Care Teams Rooms Director Relationship Specialty Start Date End Date Leia Kumar MD [address] [place] [address] PCP - General Internal Medicine 08/28/22 documented as of this encounter
--- OUTSIDE RECORDS SUMMARY | 2024-12-03 08:45 | XMS_ITS | Encounter Summary ---
Author Organization [facility] Address [address] [place] [address] Care Team Providers Care String Winding Machine Operator Name Role Phone Leia Kumar MD Primary Care Provider [phone] Encounter Details Date Type Department Care Team Description 12/02/2023 Orders Only Medical Records [address] [place] [address] Skylar Tovar MD [address] [place] [address] Social History Tobacco Use Types Packs/Day Years [...] on file documented as of this encounter Progress Notes * Alyssa Blankenship M.A. - 12/24/2023 3:15 PM EDT Letter generated and sent * Lila Tovar MD - 12/23/2023 6:56 PM EDT Dear Etelvina, The polyp(s) that were removed during your colonoscopy were precancerous, but benign. Fortunately, we removed them and therefore, they will not cause any more problems in the future. Based on the number, the size, and the features of the polyp(s) removed, I recommend a follow-up colonoscopy in 5 years. Before, the 5 years are due, we will send you a reminder in the mail asking you to contact our office to have the colonoscopy scheduled. Please have your first-degree family members your siblings especially be screened as soon as possible. Your children should get their first colonoscopies by age 25. I would like to personally thank you for allowing us to take care of you. Please don't hesitate to call us for any questions or concerns. Regards, Perry Tovar MD Board Certified Gastroenterology and Internal Medicine Transplant Hepatology [facility] documented in this encounter Plan of Treatment Not on file documented as of this encounter Procedures Procedure Name Priority Date/Time Associated Diagnosis Comments OUTSIDE COLONOSCOPY Routine 11/27/2023 OUTSIDE PATHOLOGY Routine 11/27/2023 documented in this encounter Results * OUTSIDE COLONOSCOPY (11/27/2023) Skylar Tovar MD RADIOLOGY * OUTSIDE PATHOLOGY (11/27/2023) Skylar Tovar MD OUTSIDE LAB documented in this encounter Visit Diagnoses Not on filedocumented in this encounter Care Teams String Winding Machine Operator Relationship Specialty Start Date End Date Leia Kumar MD [address] [place] [address] PCP - General Internal Medicine 08/28/22 documented as of this encounter
--- OUTSIDE RECORDS SUMMARY | 2024-12-03 08:45 | XMS_ITS | Encounter Summary ---
Author Organization [facility] Address [address] [place] [address] Care Team Providers Care Mobile Phlebotomist Name Role Phone Leia Kumar MD Primary Care Provider [phone] Encounter Details Date Type Department Care Team Description 01/15/2024 Telephone Gastroenterology - [address] [place] [address] Vero Guardado DScPAS Social History Tobacco Use [...] encounter Miscellaneous Notes * Telephone Encounter - Poppy Pope - 01/15/2024 2:32 PM EDT Patient is on recall list for procedure documented in this encounter Plan of Treatment Not on file documented as of this encounter Visit Diagnoses Not on filedocumented in this encounter Care Teams Mobile Phlebotomist Relationship Specialty Start Date End Date Leia Kumar MD [address] [place] [address] PCP - General Internal Medicine 08/28/22 documented as of this encounter
--- OUTSIDE RECORDS SUMMARY | 2024-12-03 08:45 | XMS_ITS | Encounter Summary ---
Author Organization [facility] Address [address] [place] [address] Care Team Providers Care Senior Quality Technician Name Role Phone Leia Kumar MD Primary Care Provider [phone] Encounter Details Date Type Department Care Team Description 10/11/2023 Refill Gastroenterology - [address] [place] [address] Vero Guardado DScPAS Social History [...] Telephone Encounter - Gisselle Mead C.M.A. - 10/11/2023 9:43 AM EST Can you please send Rachael into the pharamcy for Myah Patient pleaseand thank you Medication with pharmacy pending documented in this encounter Plan of Treatment Not on file documented as of this encounter Visit Diagnoses Not on filedocumented in this encounter Care Teams Senior Quality Technician Relationship Specialty Start Date End Date Leia Kumar MD [address] [place] [address] PCP - General Internal Medicine 08/28/22 documented as of this encounter
--- OUTSIDE RECORDS SUMMARY | 2024-12-03 08:45 | XMS_ITS | Clinical Summary ---
Author Organization [facility] Address [address] [place] [address] Care Team Providers Care Beach Patrol Lieutenant Name Role Phone Unavailable Primary Care Provider Unavailabl e Social History Tobacco Use Types Packs/Day Years Used Date Smoking Tobacco: Never Assessed Sex and Gender Information Value Date Recorded Sex Assigned at Not on file Gender Identity Not on file Sexual Orientation Not on file Job Start Date Occupation Industry Not on file Not on file Not on file Plan of Treatment Not on file
--- OUTSIDE RECORDS SUMMARY | 2024-12-03 08:45 | XMS_ITS | Encounter Summary ---
Author Organization [facility] Address [address] [place] [address] Care Team Providers Care Pediatric Np Name Role Phone Laura Galloway MD Primary Care Provide Faye Soto MD Primary Care Provider Chio Bella MD Primary Care Provider [phone] Leia Kumar MD Primary Care Provider [phone] Encounter Details Date Type Department Care Team Description 01/31/2016 Release of Information Medical Records [address] [place] [address] Abstract, Provider Social History Tobacco Use Types Packs/Day Years Used Date Smoking Tobacco: Passive Smo ke Exposure - Never Smoker Comments:outside Alcohol Use Standard Drinks/Week Comments Not Asked 0 (1 standard drink = 0.6 oz pur e alcohol) Sex Assigned at Date Recorded Not on file Job Start Date Occupation Industry Not on file Not on file Not on file documented as of this encounter Plan of Treatment Not on file documented as of this encounter Visit Diagnoses Not on filedocumented in this encounter Care Teams Pediatric Np Relationship Specialty Start Date End Date Laura Galloway MD PCP - General 12/06/0804/02 Faye Reese MD PCP - General Internal Medicine 04/20/20 11/28/20 Chio Keating MD [address] [place] [address] PCP - General Internal Medicine 11/29/20 08/27/22 Leia Kumar MD [address] [place] [address] PCP - General Internal Medicine 08/28/22 documented as of this encounter
--- OUTSIDE RECORDS SUMMARY | 2024-12-03 08:45 | XMS_ITS | Encounter Summary ---
Author Organization [facility] Address [address] [place] [address] Care Team Providers Care Eradicator Name Role Phone Chio Keating MD Primary Care Provider [phone] Leia Kumar MD Primary Care Provider [phone] Encounter Details Date Type Department Care Team Description 06/06/2022 Compound Finisher Report Medical Records [address] [place] [address] Pete Crystal Social History Tobacco Use Types Packs/Day Years [...] on filedocumented in this encounter Care Teams Eradicator Relationship Specialty Start Date End Date Chio Keating MD [address] [place] [address] PCP - General Internal Medicine 11/29/20 08/27/22 Leia Kumar MD [address] [place] [address] PCP - General Internal Medicine 08/28/22 documented as of this encounter
--- OUTSIDE RECORDS SUMMARY | 2024-12-03 08:45 | XMS_ITS | Encounter Summary ---
Author Organization [facility] Address [address] [place] [address] Care Team Providers Care Senior Research Fellow Name Role Phone Leia Kumar MD Primary Care Provider [phone] Encounter Details Date Type Department Care Team (Late st Contact Info) Description 09/18/2024 Nurse Triage Adult Medicine [address] [phone] Leia Kumar MD [address] [place] [phone] Social History Tobacco Use Types Packs/Day Years Used Date Smoking Tobacco: Never Smokeless Tobacco: Never Alcohol Use Standard Drinks/Week Comments No 0 [...] care for your loved ones. For example, early childhood services coordinator or elderly care for an older adult? [...] Orientation Bisexual 07/09/2024 7: 14 AM EST documented as of this encounter Progress Notes * Jacki Thompson RN - 09/23/2024 10:52 AM EST Pt. Upset on the phone stating she is very emotional , she is currently taking sertraline and her dose was increased. I feel better in the beginning but then I feel bad again . She denies wanting tohurt her self but has thoughts that life sucks , no plan to hurt herself or others but feels anxious and depressed. I advised pt. Pt. With thoughts she has been having although not suicidal should beevaluated today . Advised her to be evaluated in the ER. Pt. agrees Reason for Disposition [1] Depression AND [2] getting worse (e.g., sleeping poorly, less able to do activities of daily living) Answer Assessment - Initial Assessment Questions 1. CONCERN: What happened that made you call today? Anxiety and depression 2. DEPRESSION SYMPTOM SCREENING: How are you feeling overall? (e.g., decreased energy, increased sleeping or difficulty sleeping, difficulty concentrating, feelings of sadness, guilt, hopelessness,or worthlessness) No energy, feeling anxious and depressed . Is on sertraline and states it helps for a short time then does not help anymore 3. RISK OF HARM - SUICIDAL IDEATION: Do you ever have thoughts of hurting or killing yourself? (e.g., yes, no, no but preoccupation with thoughts about ) - INTENT: Do you have thoughts of hurting or killing yourself right NOW? (e.g., yes, no, N/A) - PLAN: Do you have a specific plan for how you would do this? (e.g., gun, knife, overdose, no plan, N/A) No suicidal though but feels life sucks and has thoughts of not being here but states she would never harm herself 4. RISK OF HARM - HOMICIDAL IDEATION: Do you ever have thoughts of hurting or killing someone else? (e.g., yes, no, no but preoccupation with thoughts about ) - INTENT: Do you have thoughts of hurting or killing someone right NOW? (e.g., yes, no, N/A) - PLAN: Do you have a specific plan for how you would do this? (e.g., gun, knife, no plan, N/A) Never has thoughts of hurting herself but feels life really sucks 5. FUNCTIONAL IMPAIRMENT: How have things been going for you overall? Have you had more difficultythan usual doing your normal daily activities? (e.g., better, same, worse; self-care, school, work, interactions) of family members from [place] has had a large contributing factor to her depression 6. SUPPORT: Who is with you now? Who do you live with? Do you have family or friends who you can talk to? Boyfriend is her support he is my only support 7. THERAPIST: Do you have a counselor or therapist? If Yes, ask: What is their name? She was but her therapist is now no longer with Kathy 8. STRESSORS: Has there been any new stress or recent changes in your life? Children, work and family deaths 9. ALCOHOL USE OR SUBSTANCE USE (DRUG USE): Do you drink alcohol or use any illegal drugs? Mariajuana 10. OTHER: Do you have any other physical symptoms right now? (e.g., fever) Body aches, neck pain 11. : Is there any chance you are ? When was your last menstrual period? LMP 09/08/2024 Protocols used: [id number] documented in this encounter Plan of Treatment Upcoming Encounters Date Type Department Care Team (Late st Contact Info) Description 12/11/2024 9:00 AM EDT Office Visit Adult Medicine [address] [phone] Leia Kumar MD [address] [place] [address] 04/21/2025 4:00 PM EDT Office Visit [address] [phone] Leia Kumar MD [address] [place] [address] documented as of this encounter Visit Diagnoses Not on filedocumented in this encounter Additional Health Concerns Infection Onset Date Last Indicated Resolved Time Influenza 10/16/2024 10/16/2024 11/09/2024 7:06 PM EDT COVID-19 10/16/2024 10/16/2024 11/15/2024 7:04 PM EDT Assessment Noted Time PHQ-9 Depression Total Score: 0 09/01/20 24 1:49 PM EST documented as of this encounter Care Teams Senior Research Fellow Relationship Specialty Start Date End Date Leia Kumar MD [address] [place] [phone] PCP - General Internal Medicine 07/12/24 documented as of this encounter
--- OUTSIDE RECORDS SUMMARY | 2024-12-03 08:45 | XMS_ITS | Encounter Summary ---
Author Organization [email or web address] Address [address] [place] [address] Care Team Providers Care Glass Worker Name Role Phone Leia Kumar MD Primary Care Provider [phone] Reason for Visit * Reason Onset Date Comments Medication 11/13/2023 Encounter Details Date Type Department Care Team Description 11/13/2023 Refill Gastroenterology - [address] [place] [phone] Skylar Tovar MD [address] [place] [phone] Medication Social History Tobacco Use Types Packs/Day Years [...] on filedocumented in this encounter Care Teams Glass Worker Relationship Specialty Start Date End Date Leia Kumar MD [address] [place] [phone] PCP - General Internal Medicine 08/28/22 documented as of this encounter
--- OUTSIDE RECORDS SUMMARY | 2024-12-03 08:45 | XMS_ITS | Encounter Summary ---
[facility] Organization [facility] Address [address] [place] [address] Care Team Providers Care Mains And Service Supervisor Name Role Phone Leia Kumar MD Primary Care Provider [phone] Encounter Details Date Type Department Care Team Description 11/08/2023 Pt. Non Urgent Medical Question Gastroenterology - [facility] [address] [place] [address] Vero Guardado DScPAS Social History [...] on filedocumented in this encounter Care Teams Mains And Service Supervisor Relationship Specialty Start Date End Date Leia Kumar MD [address] [place] [id number] PCP - General Internal Medicine 08/28/22 documented as of this encounter
[2024-12-03 09:00] LABS: MANUAL DIFF FLAG NO
[2024-12-03 09:29] LABS: Basophils Percent Auto 0.5 % (0-2); Eosinophils Absolute Auto 0.1 X10*3/uL (0.0-0.4); Eosinophils Percent Auto 0.9 % (0-4); Hematocrit 37.4 % (37.0-47.0); Imm Gran Abs Auto 0.03 X10*3/uL (0.00-0.03); Imm Gran Pct Auto 0.5 % (0.0-0.4); Lymphocytes Absolute Auto 1.3 X10*3/uL (1.2-4.9); Lymphocytes Percent Auto 19.6 % (20-40); Mean Corpuscular HGB Conc 34.8 g/dl (31.0-35.0); Mean Corpuscular Hemoglobin 30.7 pg (27.0-33.0); Mean Corpuscular Volume 88.2 fL (80.0-98.0); Mean Platelet Volume 10.6 fL (9.4-12.3); Monocytes Absolute Auto 0.3 X10*3/uL (0.1-1.2); Monocytes Percent Auto 4.5 % (2-11); Neutrophils Absolute Auto 4.8 x10*3/uL (2.0-8.3); Platelet Count 261 X10*3/uL (160-400); Red Blood Count 4.24 X10*6/uL (4.20-5.50); Red Cell Distribution Width 13.6 % (11.0-16.0); White Blood Count 6.5 X10*3/uL (4.8-10.8)
[2024-12-03 09:31] LABS: UPreg QC Valid YES; Urine Pregnancy NEGATIVE (NEGATIVE)
[2024-12-03 10:06] LABS: Alanine Aminotransferase 19 U/L (0-31); Albumin Level 4.1 g/dL (3.5-5.0); Alkaline Phosphatase 61 U/L (39-117); Anion Gap 9 (12-20); Aspartate Amino Transferase 21 U/L (5-31); Bilirubin Total 0.9 mg/dL (0.0-1.0); Blood Urea Nitrogen 10 mg/dL (9-16); Calcium 8.7 mg/dL (8.4-10.2); Carbon Dioxide 26 mmol/L (22-29); Chloride 108 mmol/L (96-108); Cholesterol 164 mg/dL (<200); Estimated Glomerular Filt Rate > 60; Glucose Fasting 92 mg/dL (60-99); HDL Cholesterol 43 mg/dL (>40); Iron 86 mcg/dL (30-160); LDL Cholesterol Calculated 105 mg/dL (<100); Percent Iron Saturation 33 % (15-50); Potassium 3.7 mmol/L (3.3-5.1); Sodium 139 mmol/L (135-145); Total Iron Binding Capacity 258 mcg/dL (228-428); Total Protein 7.2 g/dL (6.5-8.0); Triglycerides 83 mg/dL (<150); Unsaturated Iron Binding 172 ug/dL
[2024-12-03 10:14] LABS: Erythrocyte Sedimentation Rate 12 MM/HR (0-20)
[2024-12-03 10:23] LABS: Free T4 (Free Thyroxine) 1.01 ng/dL (0.71-1.85); Thyroid Stimulating Hormone 1.25 uIU/mL (0.32-4.0); Vitamin D 25-OH Total 23.7 ng/mL (>30)
[2024-12-03 10:40] LABS: Estimated Average Glucose 88 mg/dL; Hemoglobin A1C 95.5342 umol/L; Hemoglobin A1c % 4.7 % (<6.0); Total Hemoglobin (HGBA1C) 3405.8322 umol/L
[2024-12-03 10:57] LABS: Rheumatoid Factor < 13.0 IU/mL (<15.0)
[2024-12-03 11:26] LABS: Folate 4.7 ng/mL (> or = 4.0); Vitamin B12 325 pg/mL (200-900)
[2024-12-04 20:58] LABS: Homocysteine 12.5 umol/L (<10.4)
[2024-12-07 10:09] LABS: Methylmalonic Acid 97 nmol/L (55-335)
[2024-12-08 10:04] LABS: Arsenic, Blood <3 mcg/L (<23); Lead, Blood <1.0 mcg/dL (<3.5); Mercury, Blood <4 mcg/L (<=10)
[2024-12-11 16:49] LABS: Vitamin B1 9 nmol/L (8-30)
== END 2024-12-03 08:35 | disposition home or self-care (01) ==
LOC: HO.LAB 08:34
PROVIDERS: Visit Provider Psychiatry & Neurology Psychiatry
DX: F39 Unspecified mood [affective] disorder (principal); R94.31 Abnormal electrocardiogram [ECG] [EKG]
CPT/HCPCS: 36415; 80053; 80061; 81025; 82175; 82306; 82607; 82746; 83036; 83090; 83540; 83655; 83735; 83825; 83921; 84207; 84425; 84439; 84443; 85025; 85652; 86431; 93005

== ENCOUNTER → 2024-12-03 08:40 | Outpatient (BNV) | payer OTHER, SELFPAY | PROVIDERS: Visit Provider Internal Medicine | DX: Z13.6 Encounter for screening for cardiovascular disorders (principal) | CPT/HCPCS: 93010 ==

== ENCOUNTER 2024-12-10 12:45 | Outpatient (RCR) | payer OTHER, SELFPAY ==
--- NOTE | 2024-11-24 12:00 | PC.ADMIT ---
Etelvina is a 29 year old female who was referred to [facility] through [facility] crisis services. Etelvina is alert and oriented. She has a history of Depression,PTSD,and severe anxiety. The patient reports she met with crisis on 10/12/24 due to worsening symptoms of depression,anxiety and suicidal ideation. Per evaluation she reports a trauma history. Etelvina states that she went for a crisis evaluation on 10/12/24 due to having increased depression, anxiety, panic attacks, multiple stressors including family, work parenting and unprocessed grief. 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 She lives with her boyfriend, his child and her two children. Etelvina reports stopping all of her medications about a month and a half ago in October after not liking how she felt taking Sertraline, in particular, at which time she reported thoughts of swallowing a mouth full of pills or driving her car into an object and feeling unsafe driving. She took protective measures of not driving herself and reports that she would reach out to crisis if these thoughts were to return. Etelvina reports past self harm behaviors, as a teenager of poking herself with pins. She resumed all prescribed medications about 2 weeks ago, the Sertraline was discontinued by her provider. She reports seeing a neurologist recently at [facility] to treat migraines. She reports issues eating in which she does not eat all day and then binge eats at night. Etelvina reports that her sleep is inconsistent. Average sleep is between 5-6 hours a night, and has issues of not being able to fall back to sleep once awakening at around 2-3 am. She reports napping during the day while she is not working. Patient currently any SI.
[2024-11-24 12:01] VITALS: BP 102/68; PULSE 80; TEMP 37.1
[2024-11-24 12:02] VITALS: BMI 25.4
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
--- NOTE | 2024-11-26 15:27 | HO.PHP ---
Pt's case was opened and reviewed in treatment team.
--- NOTE | 2024-12-02 23:15 | HO.PHPPROGNO ---
Subjective Subjective Date of Service: 12/01/24 Reason For Visit: depression Diagnostics Vital Signs (24Hr): BMI result Body Mass Index 25.4 Assessment & Plan Certification I certify that partial hospital treatment is medically necessary due to the symptoms and problems resulting from the patient's mental illness and the failure to treat the patient at the partial hospital level of care would likely result in the patient requiring inpatient psychiatric care which could not be prevented at a less intensive level of care. Total time managing care of this patient today ____ minutes. Discharge Plan Discharge Attending provider: Mague Encinas Medications: New aripiprazole 2 mg tablet 2 mg PO BEDTIME Qty: 14 0RF guanfacine 1 mg tablet extended release 24 hr 1 mg PO DAILY Qty: 14 0RF Continued propranolol 10 mg Tablet 10 mg PO DAILY omeprazole 20 mg Capsule,Delayed Release(Dr/Ec) 20 mg PO DAILY ondansetron 4 mg Tablet,Disintegrating 4 mg PO Q8H PRN (Reason: Nausea) fluoxetine [Prozac] 20 mg Capsule 20 mg PO DAILY cyclobenzaprine 5 mg Tablet 5 mg PO TID PRN (Reason: Muscle Spasms) cholecalciferol (vitamin D3) [Vitamin D3] 50 mcg (2,000 unit) Tablet 50 mcg PO DAILY Stand Alone Forms: Patient Portal Discharge page Print Language: Faroese
--- NOTE | 2024-12-03 10:06 | HO.PHP ---
A referral was faxed to [facility] for OP therapy on 11/26/24. Dental Appliance Mechanic also called [facility] and left a voicemail requesting the new Med. Provider/psychiatry appt be moved up from January 12 to a sooner date post discharge, if possible.
--- NOTE | 2024-12-07 09:18 | HO.PHP ---
Pt called after morning community meeting because pt was not present. She was tearful over the phone stating she is not doing well. This senior mortgage underwriter inquired physically or mentally in which she responded mentally. She stated, I just don't want to be here anymore. This senior mortgage underwriter explored SI in which pt denies SI, plan or intent, in which she denies any safety concerns. She requested the program provider to call her at some point during the day. PHP provider notified.
--- NOTE | 2024-12-07 19:16 | PM.EVENT ---
Event Note Date of Service: 12/07/24 Event Note: Phone call to patient, reports she is calmer than she was earlier when she called. She reports feeling over emotional. ?This is the 1st time I am alone my kids are with their dad? she reports being up since 03:00 and that her boyfriend just started working was feeling the lonely this was unmanageable. She started on half a tablet the Abilify for the past 2 nights she taking about 21:00 falling asleep easily by 8-9 p.m. had been sleeping through the night aside from last night. She denies any adverse effects she initially thought it was helpful just this morning has been difficult she is agreeable to continuing to titrate the dose she denies any SI, HI, AH, VH. Time Spent With Patient Time: Total time managing care of this patient today _20___ minutes.
--- NOTE | 2024-12-10 19:00 | P.PNPSP_ITS ---
Subjective Subjective Date of Service: 12/02/24 Reason For Visit: depression Diagnostics Vital Signs (24Hr): BMI result Body Mass Index 25.4 Assessment & Plan Certification I certify that partial hospital treatment is medically necessary due to the symptoms and problems resulting from the patient's mental illness and the failure to treat the patient at the partial hospital level of care would likely result in the patient requiring inpatient psychiatric care which could not be prevented at a less intensive level of care. Total time managing care of this patient today ____ minutes. Discharge Plan Discharge Attending provider: Mague Encinas Medications: New gabapentin 300 mg capsule 300 mg PO BEDTIME PRN (Reason: sleep) Qty: 20 0RF ergocalciferol (vitamin D2) [Vitamin D2] 1,250 mcg (50,000 unit) capsule 1,250 mcg PO QWEEK Qty: 10 0RF guanfacine 1 mg tablet extended release 24 hr 1 mg PO BID Qty: 60 0RF Rx Instructions: for ADHD lisdexamfetamine 10 mg capsule 10 mg PO QAM Qty: 14 0RF Rx Instructions: Partial Fill upon patient request. Continued propranolol 10 mg Tablet 10 mg PO DAILY omeprazole 20 mg Capsule,Delayed Release(Dr/Ec) 20 mg PO DAILY ondansetron 4 mg Tablet,Disintegrating 4 mg PO Q8H PRN (Reason: Nausea) fluoxetine [Prozac] 20 mg Capsule 20 mg PO DAILY cyclobenzaprine 5 mg Tablet 5 mg PO TID PRN (Reason: Muscle Spasms) cholecalciferol (vitamin D3) [Vitamin D3] 50 mcg (2,000 unit) Tablet 50 mcg PO DAILY vitamin B complex Capsule 1 cap PO DAILY Qty: 90 1RF Changed aripiprazole 2 mg tablet 4 mg PO BEDTIME Qty: 60 0RF Stand Alone Forms: Patient Portal Discharge page Patient Education: Mood Disorders (ED), Mood Disorders (DC), ADHD in Adults (ED), ADHD in Adults (DC), Depression (DC), Anxiety (ED) Print Language: Amharic
--- NOTE | 2024-12-10 19:03 | P.PNPSP_ITS ---
Subjective Subjective Date of Service: 12/10/24 Reason For Visit: depression Interim History: Patient seen for follow-up, anticipating discharge at the end of program today.? Reports no acute issues or concerns. Medication compliant, medications well- tolerated. Denies any adverse effects.? Mood is stable.? Denies any hopelessness or SI. Denies thoughts of harming self or others at this time. Denies any aggressive ideation or HI. Denies any paranoia or AH or VH. Sleep, appetite, energy stable. Medication Compliance: Yes Side effects from medications: No Attending Groups: Yes Review of Systems Acute medical concerns: No Mental Status Exam Mental Status Exam Narrative: Alert, oriented, in no acute distress. Calm, cooperative. Mood stable, affect appropriate. Speech normal. Thought process linear, coherent, more goal- directed. Thought content related to stressors, future-oriented, denies any helplessness, hopelessness or SI.? No aggressive ideation or HI. No paranoia or delusional content elicited. No evidence of psychosis. Insight and judgment fair-good. Diagnostics Vital Signs (24Hr): BMI result Body Mass Index 25.4 Assessment & Plan Assessment & Plan (1) MDD (major depressive disorder), recurrent severe, without psychosis: Status: Acute Code(s): F33.2 - Major depressive disorder, recurrent severe without psychotic features (2) NOEL (generalized anxiety disorder): Status: Acute Code(s): F41.1 - Generalized anxiety disorder (3) PTSD (post-traumatic stress disorder): Status: Acute Code(s): F43.10 - Post-traumatic stress disorder, unspecified (4) Cannabis use disorder, mild, abuse: Status: Acute Code(s): F12.10 - Cannabis abuse, uncomplicated Plan [facility]charge from [facility] Continue regular medications Refills sent to pharmacy Will defer further medication management to outpatient provider *Safety plan reviewed *Discharge diagnoses, treatment course, discharge plan have been reviewed with patient (including medication regime, medication management, potential side effects) as well as treatment rationale were also revisited *Discharge paperwork signed and given to patient, copy sent for scanning to chart Patient educated on: diagnosis and medication risk/benefits Informed Consent: understands Reason for contiued partial hosp. stay Substantial Risk for: stable for discharge Certification I certify that partial hospital treatment is medically necessary due to the symptoms and problems resulting from the patient's mental illness and the failure to treat the patient at the partial hospital level of care would likely result in the patient requiring inpatient psychiatric care which could not be prevented at a less intensive level of care. Total time managing care of this patient today __30__ minutes. Discharge Plan Discharge Attending provider: Mague Encinas Medications: New gabapentin 300 mg capsule 300 mg PO BEDTIME PRN (Reason: sleep) Qty: 20 0RF ergocalciferol (vitamin D2) [Vitamin D2] 1,250 mcg (50,000 unit) capsule 1,250 mcg PO QWEEK Qty: 10 0RF guanfacine 1 mg tablet extended release 24 hr 1 mg PO BID Qty: 60 0RF Rx Instructions: for ADHD Continued propranolol 10 mg Tablet 10 mg PO DAILY omeprazole 20 mg Capsule,Delayed Release(Dr/Ec) 20 mg PO DAILY ondansetron 4 mg Tablet,Disintegrating 4 mg PO Q8H PRN (Reason: Nausea) fluoxetine [Prozac] 20 mg Capsule 20 mg PO DAILY cyclobenzaprine 5 mg Tablet 5 mg PO TID PRN (Reason: Muscle Spasms) cholecalciferol (vitamin D3) [Vitamin D3] 50 mcg (2,000 unit) Tablet 50 mcg PO DAILY vitamin B complex Capsule 1 cap PO DAILY Qty: 90 1RF Changed aripiprazole 2 mg tablet 4 mg PO BEDTIME Qty: 60 0RF Stand Alone Forms: Patient Portal Discharge page Patient Education: Mood Disorders (ED), Mood Disorders (DC), ADHD in Adults (ED), ADHD in Adults (DC), Depression (DC), Anxiety (ED) Print Language: Gibraltarian
--- NOTE | 2024-12-23 20:58 | PM.EVENT ---
Event Note Date of Service: 12/23/24 Event Note: Spoke with patient who is reporting sedation around noontime which is a few hours after taking a.m. guanfacine. She has not started on Vyvanse as she is unable to obtained without a PA. will plan to switch to Concerta 18 mg. She is otherwise doing well on Abilify mood feels well regulated denies any irritability or lability. Denies any depressive symptoms hopelessness or helplessness. Denies SI HI AH VH. She feels she has seen some progress is better able to attend to tasks and able to get out of the house more has been attending appointments and going for interview and is feeling more functional main complaints around feeling productive attention and focus Time Spent With Patient Time: Total time managing care of this patient today __20__ minutes.
== END 2024-12-10 23:59 | disposition home or self-care (01) ==
LOC: HO.PHPA 12:45
PROVIDERS: Visit Provider Psychiatry & Neurology Psychiatry
DX: F33.2 Major depressive disorder, recurrent severe without psychotic features (principal); F41.1 Generalized anxiety disorder; F43.10 Post-traumatic stress disorder, unspecified; F12.10 Cannabis abuse, uncomplicated
CPT/HCPCS: 90791; 90853

== ENCOUNTER → 2024-12-10 12:45 | Outpatient (BNV) | payer OTHER, SELFPAY | PROVIDERS: Visit Provider Psychiatry & Neurology Psychiatry | DX: F33.2 Major depressive disorder, recurrent severe without psychotic features (principal); F41.1 Generalized anxiety disorder; F43.10 Post-traumatic stress disorder, unspecified; F12.10 Cannabis abuse, uncomplicated | CPT/HCPCS: 99499 ==

== ENCOUNTER 2025-04-21 10:03 | Outpatient (AMB) | payer OTHER, SELFPAY ==
--- NOTE | 2025-04-21 10:09 | MHC.OFFVIS ---
Intake Visit Reasons: 3 Months F/u Allergies No Known Allergies Allergy (Verified 11/24/24 14:57) Medication List - Last Reconciled 04/21/25 by Michael Velarde MD aripiprazole 4 mg (2 x 2 mg) PO BEDTIME cholecalciferol (vitamin D3) (Vitamin D3) 50 mcg PO DAILY cyclobenzaprine 5 mg PO TID PRN ergocalciferol (vitamin D2) (Vitamin D2) 1,250 mcg PO QWEEK fluoxetine (Prozac) 20 mg PO DAILY gabapentin 300 mg PO BEDTIME PRN guanfacine ER 1 mg PO BID methylphenidate HCl ER (Concerta) 18 mg PO QAM omeprazole 20 mg PO DAILY ondansetron 4 mg PO Q8H PRN propranolol 10 mg PO DAILY vitamin B complex 1 cap PO DAILY HPI Comments Details: 30 RH woman with diagnosis of bipolar disorder was here for tension type headaches. She is presenting with management of migraines. She reports that the frequency of her headaches has reduced to about two to three times per week, although they persist. The headaches are moderate in severity. She takes propranolol 20 mg as needed, due to adverse effects such as right-sided body twitching and shaking when multiple medications are taken concurrently. A hernia was earlier diagnosed but does not appear to require intervention at this time. The patient continues to experience cervical pain, with associated symptoms including lightheadedness upon neck manipulation. Her overall musculoskeletal discomfort, including back pain, appears related to posture, with limited physical activity contributing to these issues. She is exploring options for increasing her physical activity levels. [facility] Medical History (Updated 04/21/25 @ 10:16 by Michael Velarde MD) GERD (gastroesophageal reflux disease) Vitamin D deficiency Constipation Cyst of Bartholin gland duct Migraines Social History Household Members: Significant Other and Children Comment: DC scheduled 12/07/24 Possible extension Patient Tobacco Use Status: Never used Tobacco Review of Systems Const Details: - Neurological: Reports headaches; Denies frequent exacerbation - Musculoskeletal: Reports neck pain; Reports muscle tension and back pain Physical Exam Neuro Other: Mental Status: Alert and oriented to person, place, and time. Normal attention. Normal spontaneous speech, fluency, and comprehension. No obvious issues with mood and memory. Affect is appropriate. Cranial Nerves: CN II: Visual ferreira full to confrontation, visual acuity intact. CN III, IV, : Pupils equal, round, reactive to light and accommodation. Extraocular movements are normal. CN V: Facial sensation is normal. CN VII: Facial movements symmetrical. CN VIII: Hearing intact to bedside conversation is normal. CN IX, X: Palate elevates symmetrically. CN XI: Shoulder shrug and head turn symmetrical. CN XII: Tongue midline without atrophy or fasciculations. Motor: Bulk and tone normal in all extremities. No significant muscle weakness in arms and legs. No drift. Reflexes: Deep tendon reflexes 2+ and symmetric. Plantar response down-going bilaterally. Coordination: [id number] and [id number] testing normal. No dysmetria. Gait and Station: No obvious gait abnormality. No ataxia or instability. Sensory: Intact to light touch, pinprick, and vibration. Romberg is negative. Extrapyramidal: Full facial expressions and blinking. No rigidity. Movements are appropriate with no tremor or abnormality. Speech: Normal; no dysarthria or tremor. Assessment & Plan Assessment & Plan (1) Migraine without aura and responsive to treatment: Comment: MRI brain WO at [facility] in Sep 2024: WNL Code(s): G43.009 - Migraine without aura, not intractable, without status migrainosus Category: Medical (2) Chronic tension type headache: Comment: Meds tried: Cyclobenzaprine Code(s): G44.229 - Chronic tension-type headache, not intractable Category: Medical Qualifiers: Intractability: not intractable Qualified Code(s): G44.229 - Chronic tension-type headache, not intractable Plan Impression 1. Migraine without aura 2. Chronic tension-type headaches Recommendations: 1. Propranolol 20 mg a day, which she was using only on as needed basis stating that headaches were relatively better. 2. Regular physical exercise specially of her per body. Coding Level of Care Code Est Pt Level 4 (65028) Diagnoses Migraine without aura and responsive to treatment G43.009 Chronic tension-type headache, not intractable G44.229 Intractability: not intractable
--- OUTSIDE RECORDS SUMMARY | 2025-04-21 11:08 | XMS_ITS | Clinical Summary ---
Author Organization [facility] Address [address] [place] [address] Care Team Providers Care Indian Trader Name Role Phone Unavailable Primary Care Provider [...]
--- OUTSIDE RECORDS SUMMARY | 2025-04-21 11:08 | XMS_ITS | Encounter Summary ---
Author Organization [facility] Address [address] [place] [address] Care Team Providers Care Obedience Trainer Name Role Phone Leia Kumar MD Primary Care Provider [phone] Encounter Details Date Type Department Care Team (Late st Contact Info) Description 09/18/2024 Nurse Triage Adult Medicine [address] [phone] Leia Kumar MD [address] [place] [id number] Social History Tobacco Use Types Packs/Day Years [...] care for your loved ones. For example, director child or elderly care for an older adult? [...] last menstrual period? LMP 09/08/2024 Protocols used: [id number] documented in this encounter Plan of Treatment Upcoming Encounters Date Type Department Care Team (Late st Contact Info) Description 04/21/2025 4:00 PM EDT Office Visit Adult Medicine [address] [phone] Leia Kumar MD [address] [place] [phone] documented as of this encounter Visit Diagnoses Not on filedocumented in this encounter Additional Health Concerns Infection Onset Date Last Indicated Resolved Time Influenza 10/16/2024 10/16/2024 11/09/2024 7:06 PM EDT COVID-19 10/16/2024 10/16/2024 11/15/2024 7:04 PM EDT Assessment Noted Time PHQ-9 Depression Total Score: 0 09/01/20 1:49 PM EST documented as of this encounter Care Teams Obedience Trainer Relationship Specialty Start Date End Date Leia Kumar MD [address] [place] [phone] PCP - General Internal Medicine 07/12/24 documented as of this encounter
== END 2025-04-21 10:16 | disposition home or self-care (01) ==
LOC: HO.HSM 10:04
PROVIDERS: PCP Internal Medicine; Referring Provider Internal Medicine; Visit Provider Psychiatry & Neurology Neurology
DX: G43.009 Migraine without aura, not intractable, without status migrainosus (principal); G44.229 Chronic tension-type headache, not intractable
CPT/HCPCS: 99214

== ENCOUNTER → 2025-04-21 10:03 | Outpatient (BNVA) | payer OTHER, SELFPAY | PROVIDERS: PCP Internal Medicine; Referring Provider Internal Medicine; Visit Provider Psychiatry & Neurology Neurology | DX: G43.009 Migraine without aura, not intractable, without status migrainosus (principal); G44.229 Chronic tension-type headache, not intractable | CPT/HCPCS: 99212 ==